=== PATIENT | female | born 1995 | race Caucasian/White ===

== ENCOUNTER 2025-08-16 16:51 | Inpatient (IN) | payer BC ==
[~2025-08-16 16:51] MED LIST: Bupivacaine/Epinephrine 0.25% 30 ML VIAL ONE
[2025-08-16 17:25] VITALS: BMI 28.2
[2025-08-16] MEDS ORDERED: Diphenoxylate HCl/Atropine Tablet PO PRN ×2 (18:25)
[2025-08-16] MEDS ORDERED: Carboprost 250 MCG/ML AMP IM PRN (18:25)
[2025-08-16] MEDS ORDERED: Tranexamic Acid 1,000 MG/10 ML VIAL IVP PRN (18:25)
[2025-08-16] MEDS ORDERED: Acetaminophen 500 MG TAB PO PRN (18:25)
[2025-08-16] MEDS ORDERED: Methylergonovine 0.2 MG/ML VIAL IM PRN (18:25)
[2025-08-16] MEDS ORDERED: Lidocaine 1% (PF) 30 ML VIAL SC PRN (18:25)
[2025-08-16] MEDS ORDERED: Ondansetron PF 4 MG/2 ML Vial IVP PRN ×2 (18:25→20:58)
[2025-08-16] MEDS ORDERED: hydrALAZINE 20 MG/ML VIAL SLOW IVP PRN ×2 (18:25→23:48)
[2025-08-16] MEDS ORDERED: Penicillin G 2.5 MILL.units 2.5 MILL.UNITS in Premix 1 BAG IVPB SCH (18:30)
[2025-08-16] MEDS ORDERED: Penicillin G Potassium 5 MILL.UNITS in Sodium Chloride 0.9% 100 ML IVPB SCH (18:30)
[2025-08-16] MEDS ORDERED: Oxytocin 30 units/NS 500 ML 500 ML IV SCH ×3 (18:30)
[2025-08-16 18:52] LABS: Hematocrit 37.9 % (34.9-44.5); Hemoglobin 13.1 g/dL (12.0-15.5); Mean Corpuscular Hemoglobin 31.9 pg (27.0-33.0); Mean Corpuscular Volume 92.2 fL (81.6-98.3); Platelet Count 159 10x3/uL (150-450); Red Blood Cell (RBC) Count 4.11 10x6/uL (3.90-5.03); White Blood Cell (WBC) Count 9.01 10x3/uL (3.5-10.5)
[2025-08-16 19:21] LABS: Syphilis Antibody Index 0.10 S/CO (<1.00 Non-Reactive)
[2025-08-16 19:24] LABS: HIV (1/2) Antibody/Antigen Non-Reactive (NonReactive); HIV 1/2 INDEX 0.13 S/CO (<1.00); Hep B Surf Ag - L&D Non-Reactive S/CO (NonReactive)
[2025-08-16] MEDS: fentaNYL/Ropivacaine Epidural 100 ML ONE (20:31)
[2025-08-16] MEDS ORDERED: diphenhydrAMINE 50 MG/ML VIAL IVP PRN (20:58)
[2025-08-16] MEDS ORDERED: fentaNYL 2 mcg/Ropivacaine 0.2% Epidural 100 ML CADD EPIDURAL SCH (21:00)
[2025-08-16] MEDS ORDERED: Communication Order-Pharmacy FS SCH (21:00)
[2025-08-16] MEDS: Acetaminophen 325 MG TAB PO PRN (22:26)
[2025-08-16] MEDS ORDERED: Bisacodyl 10 MG SUPP PR PRN (23:48)
[2025-08-16] MEDS ORDERED: Milk Of Magnesia 30 ML UDCUP PO PRN (23:48)
[2025-08-17] MEDS: Ibuprofen 800 MG TAB PO SCH (00:54)
[2025-08-17] MEDS: Ferrous Sulfate 325 MG TAB PO SCH (08:39)
[2025-08-17] MEDS: Boostrix 0.5 ML (Tdap) VIAL (>/=7 yrs of age) IM ONE (20:15)
[2025-08-17 21:34] VITALS: BP 116/63; TEMP 98.3
== END 2025-08-17 22:30 | disposition home or self-care (01) | DRG 807 ==
LOC: CSHLD/OP 16:51 → CSHLD 19:08 → CSHPP 23:40
PROVIDERS: ADMIT Family Medicine; ATTEND Family Medicine
PROC: 10E0XZZ Delivery of Products of Conception, External Approach (ICD-10-PCS; principal; 2025-08-16)
PROC: 10907ZC Drainage of Amniotic Fluid, Therapeutic from Products of Conception, Via Natural or Artificial Opening (ICD-10-PCS; 2025-08-16)
DX: O99.824 Streptococcus B carrier state complicating childbirth (principal); O87.0 Superficial thrombophlebitis in the puerperium; Z37.0 Single live birth; Z3A.39 39 weeks gestation of pregnancy; Z79.899 Other long term (current) drug therapy
CPT/HCPCS: 36415; 51702; 85027; 86780; 86850; 86900; 86901; 87340; 87389; 99285; J2540